=== PATIENT | female | born 1965 | race Caucasian/White ===

== ENCOUNTER 2016-09-21 05:41 | Day surgery (SDC) | payer OTHER ==
[~2016-09-21] VITALS: Ht 160 cm; Wt 67.1 kg
[~2016-09-21 05:41] MED LIST: CIPR500T4 PO; PSYL1040 PO; TRAM50TA2 PO; UBID1CAP18 PO; ZOF8 PO
[2016-09-21 07:00] VITALS: BP 122/89; PULSE 68; RESP 24
[2016-09-21] MEDS ORDERED: omeprazole PO (07:00)
[2016-09-21] MEDS ORDERED: metformin PO (07:00)
[2016-09-21 07:04] VITALS: Ht 160 cm; Wt 67.1 kg
[2016-09-21 08:01] VITALS: BP 111/70; RESP 20
[2016-09-21] MEDS ORDERED: FENTAnyl 50 MCG/ML VIAL ONE (08:33)
[2016-09-21] MEDS ORDERED: MIDAZOLAM 1 MG/ML 2 ML INJ ONE (08:33)
--- NOTE | 2016-09-21 11:09 | GILP ---
DATE OF PROCEDURE: 09/21/2016 NAME OF PROCEDURE: Esophagogastroduodenoscopy and biopsy. SURGEON: Claudine Gaytan MD PREOPERATIVE DIAGNOSIS: Abdominal pain. POSTOPERATIVE DIAGNOSES: 1. Hiatal hernia. 2. Gastroesophageal reflux disease. 3. Gastritis with erosions. 4. Gastric mucosal biopsies were taken for Helicobacter pylori test. INDICATION FOR THE PROCEDURE: Ms. Kaitlynn Link is a 50-year-old female patient who had upp er abdominal pain, not responding to therapy, so the patient was scheduled for endoscopic examinatio n for further evaluation. The procedure and possible complications are well explained to the patient. The patient understood and consented to the procedure. DESCRIPTION OF PROCEDURE: Under the influence of fentanyl and Versed, the gastroscope was carefully introduced into the esophagus and under direct vision, it was advanced to the stomach and through t he pylorus into the duodenal bulb and descending duodenum. FINDINGS: ESOPHAGUS: The patient had hiatal hernia and gastroesophageal reflux disease. STOMACH: The patient had gastritis with erosions. Gastric mucosal biopsies were taken for H. pylor i test. DUODENUM: Normal. She tolerated the procedure very well and there was no complication from the procedure. At the end of the procedures, she was awake with stable vital signs and she was discharged home to the care of her family. IMPRESSION: 1. Hiatal hernia. 2. Gastroesophageal reflux disease. 3. Gastritis with erosions. 4. Gastric mucosal biopsies were taken for H. pylori test. PLAN: 1. Omeprazole 40 mg p.o. q.a.m. 2. Await H. pylori test report. Dictated By: CLAUDINE KOWALSKI/SAM Conf#: [id number] DID#: [id number] CC: CLAUDINE GAYTAN MD;*EndCC*
== END 2016-09-21 11:41 | disposition home or self-care (01) ==
LOC: GIL 05:41
PROVIDERS: ATTEND Internal Medicine Gastroenterology
DX: K44.9 Diaphragmatic hernia without obstruction or gangrene (principal); K21.9 Gastro-esophageal reflux disease without esophagitis; K29.60 Other gastritis without bleeding; E11.9 Type 2 diabetes mellitus without complications
CPT/HCPCS: 43239; 82962; 87081; J2250; J3010; Z7610